=== PATIENT | female | born 1945 | race Caucasian/White ===

== ENCOUNTER 2022-10-28 09:01 | Observation (INO) ==
[2022-10-28] MEDS ORDERED: IOPAMIDOL 100 ML BOTTLE IV ONE (09:02)
--- NOTE | 2022-10-28 09:09 | Emergency Department Note ---
HPI General Chief complaint: Stroke Symptoms Stated complaint: Stroke-like symptoms Time Seen by Provider: 10/28/22 09:08 Source: patient Mode of arrival: ambulatory Limitations: no limitations History of Present Illness HPI Narrative: Narrative: Patient is a 77 yo F with a history of CVA, hypertension, and hyperlipidemia who presents to the emergency department due to dizziness, imbalance, headache, and concern for stroke. She states that her symptoms started at approximately 800 am one hour ago. She suddenly became dizzy then was having trouble balancing her self. She states that both of these have continued. She also endorses moderate headache as well. She is concerned because her previous stroke was similar to this. She denies any other concerns at this time. Related Data Home Medications Medication Instructions Recorded Confirmed ascorbic acid (vitamin C) 1,000 mg 1,000 mg PO QDAY 06/01/15 10/28/22 tablet (Vitamin C) multivit with 1 ea PO QDAY 06/01/15 10/28/22 [id number] 8 mg iron-400 mcg-300 mcg tablet (Centrum Silver Women) omega-3 fatty acids-fish oil 300 1 ea PO QDAY 06/01/15 10/28/22 mg-500 mg capsule (Fish Oil) omeprazole 20 mg capsule,delayed 20 mg PO ACB 06/01/15 10/28/22 release potassium chloride 20 mEq 40 meq PO QAMCC 06/01/15 10/28/22 tablet,extended release(part/cryst) (Klor-Con M) simvastatin 20 mg tablet 20 mg PO DAILY 06/01/15 10/28/22 synthetic conj estrogens B 0.3 mg 0.3 mg PO QDAY 06/01/15 10/28/22 tablet (Enjuvia) venlafaxine 75 mg tablet 75 mg PO QDAY 06/01/15 10/28/22 aspirin 81 mg tablet,delayed 81 mg PO DAILY 03/04/19 10/28/22 release clopidogrel 75 mg tablet 75 mg PO DAILY 03/04/19 10/28/22 meloxicam 15 mg tablet 15 mg PO DAILY 03/04/19 10/28/22 hydrochlorothiazide 12.5 mg capsule 12.5 mg PO QDAY 10/28/22 10/28/22 oxybutynin chloride 5 mg tablet 5 mg PO QDAY 10/28/22 10/28/22 Previous Rx's Medication Instructions Recorded losartan 100 1 tab PO QDAY #90 tabs 07/20/ mg-hydrochlorothiazide 12.5 mg tablet loperamide 2 mg tablet (Imodium 2 mg PO Q6H PRN loose stool #20 10/29/22 A-D) tabs meclizine 25 mg tablet 25 mg PO TIDP PRN Vertigo #20 tabs 10/29/22 Allergies Allergy/AdvReac Type Severity Reaction Status Date / Time No Known Drug Allergies Allergy Verified 07/09/20 18:19 Review of Systems ROS ROS Narrative: Narrative: Constitutional: Denies fever or weakness Eyes: Denies eye pain or vision change ENT ED: Denies throat pain or rhinorrhea Cardiovascular: Denies chest pain, dyspnea on exertion, orthopnea or edema Respiratory: Denies shortness of breath or cough Gastrointestinal: Denies abdominal pain, nausea, vomiting, diarrhea, constipation, hematochezia or melena Musculoskeletal: Denies back pain or myalgia Integumentary: Denies rash or lesions Neurological: Reports headache, abnormal gait and dizziness; Denies weakness, numbness or confusion Endocrine: Denies fatigue or polyuria Hematological/Lymphatic: Denies easy bleeding or easy bruising PFSH Narrative Patient History Narrative: Narrative: Medical/Surgical/Family History All Active Problems (Updated 10/30/22 @ 11:13 by Abundio Magana MD) Headache (Acute) Nystagmus (Acute) Dizziness (Acute) Imbalance (Acute) BPPV (benign paroxysmal positional vertigo) (Acute) TIA (transient ischemic attack) (Acute) CVA (cerebral vascular accident) (Acute) Syncope and collapse (Acute) Contusion of forehead (Acute) Contusion of knee, right (Acute) Headache (Acute) Paroxysmal atrial flutter (Acute) History of CVA (cerebrovascular accident) (Chronic) Chronic anticoagulation (Chronic) Hypertension (Chronic) Hyperlipidemia (Chronic) GERD (gastroesophageal reflux disease) (Chronic) Depression, major, recurrent (Chronic) Medical History (Updated 10/30/22 @ 11:13 by Abundio Magana MD) Chronic anticoagulation CVA (cerebral vascular accident) Depression, major, recurrent Epistaxis, recurrent GERD (gastroesophageal reflux disease) History of CVA (cerebrovascular accident) slight or mild decrease in sensation R edel... Hyperlipidemia Hypertension Exam Narrative Narrative: Narrative: General Limitations: no limitations General appearance: Present alert and in no apparent distress; Absent anxious, appears intoxicated or sleepy Head Head: Present atraumatic and normocephalic Eye Eye: Present EOMI, nystagmus, visual brewster intact and other (Anisocoria with right pupil larger than left); Absent scleral icterus ENT ENT: Present mucous membranes moist; Absent nasal congestion Neck Neck: Present full ROM; Absent tenderness Chest Chest: Present normal inspection and symmetric chest wall rise; Absent tenderness Respiratory Respiratory: Present normal lung sounds bilaterally; Absent respiratory distress or accessory muscle use Cardiovascular Cardiovascular: Present regular rate, normal rhythm and normal heart sounds Adbominal Abdominal: Present soft; Absent distention Extremities Extremities: Present normal inspection and full ROM; Absent pedal edema or pretibial edema Back Back: Present normal inspection and full ROM Neurological Neurological: Present alert, oriented X3, CN II-XII intact, motor sensory deficit (Mild upper and lower extremity drift on left) and reflexes normal Psychiatric Psychiatric: Present normal affect and normal mood Skin Skin: Present warm (WNL), dry and normal color Course Vital Signs Vital signs: Vital Signs Pulse Rate 108 H 10/28/22 09:01 Respiratory Rate 14 10/28/22 09:01 Blood Pressure 158/90 10/28/22 09:01 Pulse Oximetry (%) 99 10/28/22 09:01 Oxygen Delivery Method Room Air 10/28/22 09:01 Temperature 97.5 F 10/29/22 11:09 Pulse Rate 89 10/29/22 11:09 Respiratory Rate 16 10/29/22 11:09 Blood Pressure 143/93 10/29/22 11:09 Pulse Oximetry (%) 98 10/29/22 11:09 Oxygen Delivery Method Room Air 10/29/22 11:09 Oxygen Flow Rate (L/min) 0 10/29/22 06:01 [facility] Narrative Medical decision making narrative: Narrative: Patient is a 77 yo F who presents to the emergency department due to concern for stroke. Differential includes BPPV, stroke, and complex migraine. A stroke alert was called quickly after my initial evaluation. I spoke to the teleneurologic doctor who agreed that patient did not meet criteria to give TNkase. He did recommend continued stroke work up with admission and MRI. CT without contrast and CT angio head/neck are reassuring. Labs are reassuring. Patient has been given toradol, reglan, and benadryl with IV fluid for her headache with improvement in headache, but she continues to be dizzy and is found to have continued nystagmus and anisocoria. I have spoken to Dr. Paulson who has agreed to see and evaluate patient for admission. Lab Data 10/28/22 09:08 Labs: Lab Results 10/28/22 10/28/22 10/28/22 Range/Units 09:08 09:08 09:11 WBC 6.9 (4.5-11.0) K/mcL RBC 5.37 (3.59-5.38) M/mcL Hgb 15.5 (11.2-15.7) g/dL Hct 47.8 H (34.1-44.9) % POC Hct 47.0 (36-48) MCV 89.0 (80.0-100.0) fL MCH 28.9 (26.0-34.0) pg MCHC 32.4 (31.0-36.0) g/dL RDW 12.6 (11.5-14.5) % Plt Count 268 (140-440) K/mcL MPV 10.2 (8.8-12.5) fL Immature Gran % (Auto) 0.3 (0.0-0.5) % Neut % (Auto) 64.3 (38.0-78.0) % Lymph % (Auto) 25.5 (15.5-49.0) % Broome % (Auto) 8.0 (1.0-12.0) % Eos % (Auto) 1.3 (0.0-7.0) % Baso % (Auto) 0.6 (0.0-2.0) % Lymph # (Auto) 1.75 (1.50-4.80) K/mcL Broome # (Auto) 0.55 (0.10-0.90) K/mcL Eos # (Auto) 0.09 (0.00-0.70) K/mcL Baso # (Auto) 0.04 (0.00-0.30) K/mcL Immature Gran # 0.02 (0.00-0.05) K/mcl Absolute Neutrophils 4.42 (1.80-8.00) K/mcL POC PT (11.9-14.5) POC INR (0.8-1.2) APTT 24.0 (20.0-37.0) sec POC Sodium 141 (133-145) POC Potassium 3.8 (3.3-5.1) POC Chloride 103 (96-108) POC Total CO2 28.0 (22-30) POC BUN 29 H (6-20) POC Creatinine 1.1 (0.6-1.2) POC Glucose 140 H (70-105) POC WB Ioniz Calcium 1.16 (1.16-1.32) Total Bilirubin (0.1-1.0) mg/dL Direct Bilirubin (0-0.3) mg/dL AST (<32) U/L ALT (<40) U/L Alkaline Phosphatase (39-117) U/L Total Protein (5.9-8.4) gm/dL Albumin (3.2-5.2) gm/dL Globulin (2.2-3.7) gm/dL Urine Color Urine Appearance (Clear) Urine pH (5.0-9.0) Ur Specific Festus (1.000-1.035) Urine Protein (Negative) mg/dL Urine Glucose (UA) (Negative) mg/dL Urine Ketones (Negative) mg/dL Urine Occult Blood (Negative) bernarda/mcL Urine Nitrate (Negative) Urine Bilirubin (Negative) mg/dL Urine Urobilinogen mg/dL Ur Leukocyte Esterase (Negative) /uL Ur Culture Indicated? POC Troponin I (0.00-0.08) 10/28/22 10/28/22 10/28/22 Range/Units 09:12 09:28 09:28 WBC (4.5-11.0) K/mcL RBC (3.59-5.38) M/mcL Hgb (11.2-15.7) g/dL Hct (34.1-44.9) % POC Hct (36-48) MCV (80.0-100.0) fL MCH (26.0-34.0) pg MCHC (31.0-36.0) g/dL RDW (11.5-14.5) % Plt Count (140-440) K/mcL MPV (8.8-12.5) fL Immature Gran % (Auto) (0.0-0.5) % Neut % (Auto) (38.0-78.0) % Lymph % (Auto) (15.5-49.0) % Broome % (Auto) (1.0-12.0) % Eos % (Auto) (0.0-7.0) % Baso % (Auto) (0.0-2.0) % Lymph # (Auto) (1.50-4.80) K/mcL Broome # (Auto) (0.10-0.90) K/mcL Eos # (Auto) (0.00-0.70) K/mcL Baso # (Auto) (0.00-0.30) K/mcL Immature Gran # (0.00-0.05) K/mcl Absolute Neutrophils (1.80-8.00) K/mcL POC PT 13.4 (11.9-14.5) POC INR 1.1 (0.8-1.2) APTT (20.0-37.0) sec POC Sodium (133-145) POC Potassium (3.3-5.1) POC Chloride (96-108) POC Total CO2 (22-30) POC BUN (6-20) POC Creatinine (0.6-1.2) POC Glucose (70-105) POC WB Ioniz Calcium (1.16-1.32) Total Bilirubin 0.4 (0.1-1.0) mg/dL Direct Bilirubin < 0.2 (0-0.3) mg/dL AST 19 (<32) U/L ALT 16 (<40) U/L Alkaline Phosphatase 76 (39-117) U/L Total Protein 7.4 (5.9-8.4) gm/dL Albumin 4.4 (3.2-5.2) gm/dL Globulin 3.0 (2.2-3.7) gm/dL Urine Color Urine Appearance (Clear) Urine pH (5.0-9.0) Ur Specific Festus (1.000-1.035) Urine Protein (Negative) mg/dL Urine Glucose (UA) (Negative) mg/dL Urine Ketones (Negative) mg/dL Urine Occult Blood (Negative) bernarda/mcL Urine Nitrate (Negative) Urine Bilirubin (Negative) mg/dL Urine Urobilinogen mg/dL Ur Leukocyte Esterase (Negative) /uL Ur Culture Indicated? POC Troponin I 0.02 (0.00-0.08) 01/31/23 Range/Units 11:33 WBC (4.5-11.0) K/mcL RBC (3.59-5.38) M/mcL Hgb (11.2-15.7) g/dL Hct (34.1-44.9) % POC Hct (36-48) MCV (80.0-100.0) fL MCH (26.0-34.0) pg MCHC (31.0-36.0) g/dL RDW (11.5-14.5) % Plt Count (140-440) K/mcL MPV (8.8-12.5) fL Immature Gran % (Auto) (0.0-0.5) % Neut % (Auto) (38.0-78.0) % Lymph % (Auto) (15.5-49.0) % Broome % (Auto) (1.0-12.0) % Eos % (Auto) (0.0-7.0) % Baso % (Auto) (0.0-2.0) % Lymph # (Auto) (1.50-4.80) K/mcL [place]ome # (Auto) (0.10-0.90) K/mcL Eos # (Auto) (0.00-0.70) K/mcL Baso # (Auto) (0.00-0.30) K/mcL Immature Gran # (0.00-0.05) K/mcl Absolute Neutrophils (1.80-8.00) K/mcL POC PT (11.9-14.5) POC INR (0.8-1.2) APTT (20.0-37.0) sec POC Sodium (133-145) POC Potassium (3.3-5.1) POC Chloride (96-108) POC Total CO2 (22-30) POC BUN (6-20) POC Creatinine (0.6-1.2) POC Glucose (70-105) POC WB Ioniz Calcium (1.16-1.32) Total Bilirubin (0.1-1.0) mg/dL Direct Bilirubin (0-0.3) mg/dL AST (<32) U/L ALT (<40) U/L Alkaline Phosphatase (39-117) U/L Total Protein (5.9-8.4) gm/dL Albumin (3.2-5.2) gm/dL Globulin (2.2-3.7) gm/dL Urine Color Lt. yellow Urine Appearance Clear (Clear) Urine pH 6.5 (5.0-9.0) Ur Specific Festus <= 1.005 (1.000-1.035) Urine Protein Negative (Negative) mg/dL Urine Glucose (UA) Negative (Negative) mg/dL Urine Ketones Negative (Negative) mg/dL Urine Occult Blood Negative (Negative) bernarda/mcL Urine Nitrate Negative (Negative) Urine Bilirubin Negative (Negative) mg/dL Urine Urobilinogen Normal mg/dL Ur Leukocyte Esterase Negative (Negative) /uL Ur Culture Indicated? No POC Troponin I (0.00-0.08) EKG Data EKG #1: EKG attestation: Yes I reviewed and interpreted this EKG. EKG results narrative: Atrial fibrillation with rate of 107, normal axis, QRS of 94, QTc of 444, T wave inversions in lead I and aVL, T wave flattening in leads II, V5, and V6, and absence of ST elevation or depression. Discharge Plan Patient/Caregiver Discharge Instructions Pt seen by SPECIAL SERVICES COORDINATOR/PA only: No Clinical Impression: Headache, Nystagmus, Dizziness, Imbalance Activity: increase activity as tolerated Patient Disposition: Xfer As Inpt ([facility]) Condition: Fair Discharge Date/Time: 10/28/22 15:00
[2022-10-28] MEDS ORDERED: TENECTEPLASE 50 MG/10 ML VIAL IV ONE (09:17)
--- NOTE | 2022-10-28 09:27 | Cat Scan Report ---
INDICATION: Neuro Deficit/acute stroke COMPARISON: Previous brain CT scan dated 09/01/2019. Previous MRI scan dated 01/10/2019. Previous CTA dated 01/10/2019 TECHNIQUE: Axial noncontrast-enhanced images through the brain. Sagittally and coronally reformatted images. FINDINGS: Cerebral hemispheres:Negative. No intra-axial abnormality. No intra-axial hematoma. No localized mass effect.Brain volume is within normal limits for age. Periventricular white matter is negative without significant attenuation abnormality. Brainstem and cerebellum:No intra-axial abnormality Extra-axial:No acute hemorrhage. No subdural or epidural hematoma. No subarachnoid hemorrhage. Basilar cisterns are normal Calvarial:No calvarial fracture. No lytic lesion Temporal bones are negative. No destructive lesions Soft tissue, orbits, sinuses:Orbits and visualized facial soft tissues are negative. There is fluid within left mastoid air cells consistent with sinusitis. This is unchanged. IMPRESSION: 1. No acute intracranial abnormality 2. Left mastoid sinusitis 3. No interval change since 09/01/2019 The exam was performed using radiation dose optimization techniques including, but not limited to, automated exposure control, adjustment of the mA and/or kV according to patient size and use of iterative reconstruction technique. Interpreted and Authenticated by: Shashank Celestin 10/28/22
[2022-10-28 09:30] LABS: POC INR 1.1 (0.8-1.2); POC Pro Time 13.4 (11.9-14.5)
[2022-10-28 09:34] LABS: POC Calcium, Ionized 1.16 (1.16-1.32); POC Creatinine 1.1 (0.6-1.2); POC Potassium 3.8 (3.3-5.1)
[2022-10-28] MEDS ORDERED: 0.9 % SODIUM CHLORIDE 500 ML IV ONE (09:40)
[2022-10-28] MEDS ORDERED: diphenhydrAMINE 50 MG/ML VIAL IV ONE (10:17)
[2022-10-28] MEDS ORDERED: METOCLOPRAMIDE 10 MG/2 ML VIAL IV ONE (10:17)
[2022-10-28] MEDS ORDERED: KETOROLAC 30 MG/ML VIAL IV ONE (10:17)
[2022-10-28 10:23] LABS: Basophils # (Auto) 0.04 K/mcL (0.00-0.30); Basophils % (Auto) 0.6 % (0.0-2.0); Eosinophils # (Auto) 0.09 K/mcL (0.00-0.70); Eosinophils % (Auto) 1.3 % (0.0-7.0); Hematocrit 47.8 % (34.1-44.9); Hemoglobin 15.5 g/dL (11.2-15.7); Lymphocytes # (Auto) 1.75 K/mcL (1.50-4.80); Lymphocytes % (Auto) 25.5 % (15.5-49.0); Mean Corpuscular HGB Conc 32.4 g/dL (31.0-36.0); Mean Platelet Volume 10.2 fL (8.8-12.5); Monocytes # (Auto) 0.55 K/mcL (0.10-0.90); Neutrophils % (Auto) 64.3 % (38.0-78.0); Platelet Count 268 K/mcL (140-440); RBC 5.37 M/mcL (3.59-5.38); Red Cell Distribution Width 12.6 % (11.5-14.5); WBC 6.9 K/mcL (4.5-11.0)
--- NOTE | 2022-10-28 10:34 | Cat Scan Report ---
INDICATION: Concern for stroke COMPARISON: Noncontrast enhanced brain CT scan dated 10/28/2022 TECHNIQUE: Axial images were obtained through the upper chest, neck, and head during arterial phase. MIP and CPR reformatted images. 80ml Isovue 370 injected intravenously. FINDINGS: AORTIC ARCH: No significant calcified atherosclerotic plaque. Origins of the left subclavian artery, left vertebral artery, left common carotid artery, innominate artery, right common carotid artery, right subclavian artery, right vertebral artery are negative. No origin stenosis. CAROTID ARTERIES:Right: Right common carotid artery is negative. No stenosis or occlusion. No significant calcified or noncalcified plaque at the origin of the right internal carotid artery. No significant stenosis or evidence for ulceration. Right internal carotid artery is otherwise negative. No stenosis or occlusion. No fibromuscular dysplasia or dissection. Left: Left common carotid artery is negative. No stenosis or occlusion Minimal calcified plaque at the origin of left internal carotid artery. No significant stenosis. No evidence for ulceration. Left internal carotid artery is otherwise negative. There is no stenosis or occlusion. No dissection or evidence for fibromuscular dysplasia VERTEBRAL ARTERIES:Vertebral arteries are patent without stenosis or occlusion. Right vertebral artery is larger than the left. Left vertebral artery is patent throughout its length. [place]:[Cavernous and supraclinoid internal carotid arteries are negative. No significant stenosis or occlusion. M1 segments of the middle cerebral arteries and A1 segments of the anterior cerebral arteries are negative. Intracranial vertebral arteries and basilar artery are negative. Posterior cerebral arteries and superior cerebellar arteries are negative] INTRACRANIAL CIRCULATION:No intracranial branch occlusion. No arteriovenous malformation or aneurysm No dural sinus occlusion UPPER CHEST:No pulmonary parenchymal mass or focal infiltrate. Superior mediastinum is negative NECK:No solid or cystic soft tissue mass. No pathologic lymphadenopathy. BRAIN:No acute intracranial hemorrhage. No focal attenuation abnormalities or pathologic contrast enhancement. There is fluid within a prominent left mastoid air cell consistent with inflammatory disease. IMPRESSION: Negative CTA of the upper chest, neck, brain The exam was performed using radiation dose optimization techniques including, but not limited to, automated exposure control, adjustment of the mA and/or kV according to patient size and use of iterative reconstruction technique. Interpreted and Authenticated by: Shashank Celestin 10/28/22
[2022-10-28 11:13] LABS: ALT/SGPT 16 U/L (<40); AST/SGOT 19 U/L (<32); Albumin 4.4 gm/dL (3.2-5.2); Alkaline Phosphatase 76 U/L (39-117); Bilirubin,Direct < 0.2 mg/dL (0-0.3); Bilirubin,Total 0.4 mg/dL (0.1-1.0)
[2022-10-28 12:33] LABS: Appearance,Urine CLEAR (Clear); Bilirubin,Urine NEGATIVE (Negative); Color,Urine LT. YELLOW; Culture Indicated,Urine No; Glucose,Urine (UA) NEGATIVE (Negative); Ketones,Urine NEGATIVE (Negative); Leukocyte Esterase,Urine NEGATIVE /uL (Negative); Nitrate,Urine NEGATIVE (Negative); PH,Urine 6.5 (5.0-9.0); Protein,Urine NEGATIVE (Negative); Specific Gravity,Urine <= 1.005 (1.000-1.035); Urine Blood NEGATIVE ery/mcL (Negative); Urobilinogen,Urine Normal
[2022-10-28] MEDS ORDERED: ASPIRIN 325 MG ENTERIC COATED TABLET PO ONE (13:38)
[2022-10-28] MEDS ORDERED: ASPIRIN 81 MG TAB.CHEW CHEWED ONE (14:17)
--- NOTE | 2022-10-28 14:22 | Internal Med History&Physical ---
HPI History of Present Illness Patient information: Note initiated : 10/28/22 at 2:17 pm Service Date, if different from initiated Date: [] Patient: Shelly Adorno a 77 y/o F admitted on for Stroke-like symptoms. Chief Complaint: [nausea vomiting headache dizziness] Chief complaint: nausea vomiting headache dizziness History of present illness: Ms. Adorno is a 77 year old F history of stroke, essential hypertensions, mixed dyslipidemia, presenting with 1 day history of acute onset nausea, vomiting, headache, dizziness. She had a history of stroke 5 years ago. Today at 8 AM in the morning, patient had acute onset headaches, dizziness in terms of room spinning sensations, nausea, vomiting. She also have unsteadiness to her feet she could barely stand up or walk. She also has blurry vision. She denies any numbness or weakness of any of her extremities. Vital signs at ED presentation significant for mild tachycardia heart rate up to the 110s beats per minute. Labs largely unremarkable. NIH stroke scale at ED presentation equals to 2. CT of the head without contrast no acute intracranial pathologies. CTA head and the neck no hemodynamically significant stenosis. Admission request was called for stroke versus TIA versus BPPV. Constitutional Constitutional: Absent chills, excessive sweating, fatigue, fever(s) or weakness EENT Eyes: Present blurry vision and change in vision; Absent loss of vision or other visual disturbances Ears: Absent decreased hearing or tinnitus Nose, mouth and throat: Absent abnormal hearing, dry mouth, headache(s), nasal congestion or sore throat Cardiovascular Cardiovascular: Absent chest pain, chest pain at rest, edema, irregular heart rhythm or palpatations Respiratory Respiratory: Absent cough, dyspnea or wheezing Gastrointestinal Gastrointestinal: Present nausea and vomiting; Absent abdominal pain, constipation or diarrhea Musculoskeletal Musculoskeletal: Absent back pain, deformity, limited range of motion, muscle cramps, muscle weakness or numbness Integumentary Integumentary: Absent lesions, rash or wounds Neurological Neurological: Present disequilibrium, headache(s) and vertigo; Absent focal weakness or numbness Psychiatric Psychiatric: Absent anxiety, depression or hallucinations PFSH PFSH All Active Problems (Updated 10/28/22 @ 14:27 by Alber Paulson MD) BPPV (benign paroxysmal positional vertigo) (Acute) TIA (transient ischemic attack) (Acute) CVA (cerebral vascular accident) (Acute) Syncope and collapse (Acute) Contusion of forehead (Acute) Contusion of knee, right (Acute) Headache (Acute) Paroxysmal atrial flutter (Acute) History of CVA (cerebrovascular accident) (Chronic) Chronic anticoagulation (Chronic) Hypertension (Chronic) Hyperlipidemia (Chronic) GERD (gastroesophageal reflux disease) (Chronic) Depression, major, recurrent (Chronic) Medical History (Updated 10/28/22 @ 14:27 by Alber Paulson MD) Chronic anticoagulation CVA (cerebral vascular accident) Depression, major, recurrent Epistaxis, recurrent GERD (gastroesophageal reflux disease) History of CVA (cerebrovascular accident) slight or mild decrease in sensation R edel... Hyperlipidemia Hypertension MEDS/ALLERGIES Home Medications and Allergies Home Medications Medication Instructions Recorded Confirmed Type ascorbic acid (vitamin C) 1,000 mg 1,000 mg PO QDAY 06/01/15 10/28/22 History tablet (Vitamin C) multivit with 1 ea PO QDAY 06/01/15 10/28/22 History [id number] 8 mg iron-400 mcg-300 mcg tablet (Centrum Silver Women) omega-3 fatty acids-fish oil 300 1 ea PO QDAY 06/01/15 10/28/22 History mg-500 mg capsule (Fish Oil) omeprazole 20 mg capsule,delayed 20 mg PO ACB 06/01/15 10/28/22 History release potassium chloride 20 mEq 40 meq PO QAMCC 06/01/15 10/28/22 History tablet,extended release(part/cryst) (Klor-Con M) simvastatin 20 mg tablet 20 mg PO DAILY 06/01/15 10/28/22 History synthetic conj estrogens B 0.3 mg 0.3 mg PO QDAY 06/01/15 07/09/20 History tablet (Enjuvia) venlafaxine 75 mg tablet 75 mg PO QDAY 06/01/15 10/28/22 History losartan 100 1 tab PO QDAY #90 tabs 07/20/15 10/28/22 Rx mg-hydrochlorothiazide 12.5 mg tablet aspirin 81 mg tablet,delayed 81 mg PO DAILY 03/04/19 10/28/22 History release clopidogrel 75 mg tablet 75 mg PO DAILY 03/04/19 10/28/22 History meloxicam 15 mg tablet 15 mg PO DAILY 03/04/19 10/28/22 History hydrochlorothiazide 12.5 mg capsule 12.5 mg PO QDAY 10/28/22 10/28/22 History oxybutynin chloride 5 mg tablet 5 mg PO QDAY 10/28/22 10/28/22 History Allergies Allergy/AdvReac Type Severity Reaction Status Date / Time No Known Drug Allergies Allergy Verified 07/09/20 18:19 EXAM Constitutional Vitals: Pulse Resp BP Pulse Ox O2 Del Method 110 H 16 137/80 94 Nasal Cannula 10/28/22 13:49 10/28/22 13:49 10/28/22 13:16 10/28/22 13:49 10/28/22 13:16 General appearance: cooperative and no acute distress Head Head exam: Present atraumatic and normocephalic Eye Eye exam: Present EOMI; Absent PERRL Additional comments: Pupil size unequal, right >left Questionable very mild nystagmus ENT ENT exam: Present mucous membranes moist, normal exam and normal external ear exam Neck Neck exam: Present normal inspection; Absent lymphadenopathy, tenderness or thyromegaly Respiratory Respiratory exam: Absent accessory muscle use, respiratory distress or wheezes Cardiovascular Cardiovascular exam: Present normal rate and rhythm; Absent JVD GI/Abdominal GI/Abdominal exam: Present normal bowel sounds and soft; Absent organomegaly or tenderness Extremities Exam Extremities exam: Present full ROM, normal capillary refill and normal inspection; Absent tenderness Neurological Exam Neurological exam: Present alert, CN II-XII intact and oriented X3; Absent motor sensory deficit Psychiatric Psychiatric exam: Present normal affect and normal mood; Absent anxious or depressed Skin Skin exam: Present dry and intact DATA Data Completed and Pending Labs: Labs from last 24 hours 10/28/22 10/28/22 10/28/22 11:33 09:28 09:28 WBC RBC Hgb Hct POC Hct MCV MCH MCHC RDW Plt Count MPV Immature Gran % (Auto) Neut % (Auto) Lymph % (Auto) [place] % (Auto) Eos % (Auto) Baso % (Auto) Lymph # (Auto) [place] # (Auto) Eos # (Auto) Baso # (Auto) Immature Gran # Absolute Neutrophils POC PT 13.4 POC INR 1.1 APTT POC Sodium POC Potassium POC Chloride POC Total CO2 POC BUN POC Creatinine POC Glucose POC WB Ioniz Calcium Total Bilirubin 0.4 Direct Bilirubin < 0.2 AST 19 ALT 16 Alkaline Phosphatase 76 Total Protein 7.4 Albumin 4.4 Globulin 3.0 Urine Color Lt. yellow Urine Appearance Clear Urine pH 6.5 Ur Specific [place] <= 1.005 Urine Protein Negative Urine Glucose (UA) Negative Urine Ketones Negative Urine Occult Blood Negative Urine Nitrate Negative Urine Bilirubin Negative Urine Urobilinogen Normal Ur Leukocyte Esterase Negative Ur Culture Indicated? No POC Troponin I 10/28/22 10/28/22 10/28/22 09:12 09:11 09:08 WBC RBC Hgb Hct POC Hct 47.0 MCV MCH MCHC RDW Plt Count MPV Immature Gran % (Auto) Neut % (Auto) Lymph % (Auto) [place] % (Auto) Eos % (Auto) Baso % (Auto) Lymph # (Auto) [place] # (Auto) Eos # (Auto) Baso # (Auto) Immature Gran # Absolute Neutrophils POC PT POC INR APTT 24.0 POC Sodium 141 POC Potassium 3.8 POC Chloride 103 POC Total CO2 28.0 POC BUN 29 H POC Creatinine 1.1 POC Glucose 140 H POC WB Ioniz Calcium 1.16 Total Bilirubin Direct Bilirubin AST ALT Alkaline Phosphatase Total Protein Albumin Globulin Urine Color Urine Appearance Urine pH Ur Specific [place] Urine Protein Urine Glucose (UA) Urine Ketones Urine Occult Blood Urine Nitrate Urine Bilirubin Urine Urobilinogen Ur Leukocyte Esterase Ur Culture Indicated? POC Troponin I 0.02 10/28/22 09:08 WBC 6.9 RBC 5.37 Hgb 15.5 Hct 47.8 H POC Hct MCV 89.0 MCH 28.9 MCHC 32.4 RDW 12.6 Plt Count 268 MPV 10.2 Immature Gran % (Auto) 0.3 Neut % (Auto) 64.3 Lymph % (Auto) 25.5 [place] % (Auto) 8.0 Eos % (Auto) 1.3 Baso % (Auto) 0.6 Lymph # (Auto) 1.75 [place] # (Auto) 0.55 Eos # (Auto) 0.09 Baso # (Auto) 0.04 Immature Gran # 0.02 Absolute Neutrophils 4.42 POC PT POC INR APTT POC Sodium POC Potassium POC Chloride POC Total CO2 POC BUN POC Creatinine POC Glucose POC WB Ioniz Calcium Total Bilirubin Direct Bilirubin AST ALT Alkaline Phosphatase Total Protein Albumin Globulin Urine Color Urine Appearance Urine pH Ur Specific [place] Urine Protein Urine Glucose (UA) Urine Ketones Urine Occult Blood Urine Nitrate Urine Bilirubin Urine Urobilinogen Ur Leukocyte Esterase Ur Culture Indicated? POC Troponin I A/P Assessment and plan (1) TIA (transient ischemic attack): Status: Acute (2) CVA (cerebral vascular accident): Status: Acute (3) BPPV (benign paroxysmal positional vertigo): Status: Acute (4) Hypertension: Status: Chronic Qualifiers: Hypertension type: essential hypertension Qualified Code(s): I10 - Essential (primary) hypertension (5) Hyperlipidemia: Status: Chronic Narrative A/P Narrative: Assessment and Plans: 1. Nausea, vomiting, headache, vertigo, blurry vision, unsteadiness: DDx: Stroke vs TIA vs BPPV Observation PCU telemetry Neuro Check q2hr NIH stroke scale q shift Bedside swallowing evaluation before feeding patient Aspirin Plavix Lipitor HgA1c screening Lipid panel Meclizine MRI brain stroke protocol 2D echocardiogram Physical therapy Occupational therapy 2. Essential hypertension: Currently normotensive Resume home regimen of oral antihypertensives 3. Dyslipidemia: Lipid panel Lipitor Fish oil omega 3 GI ppx: Prilosec DVT ppx: Lovenox Code status: Full Prognosis: guarded Disposition: observation PCU; PT OT Time Spent With Patient Time: Total time spent is greater than 50% in coordination of care (as documented) at patient's floor/unit and/or counseling patient: Initial: Total time with patient: 55 - 74 minutes QUALITY Stroke Symptom Onset Unknown: No
[2022-10-28] MEDS ORDERED: ONDANSETRON 4 MG/2 ML VIAL IV PRN (14:42)
[2022-10-28] MEDS ORDERED: LACTULOSE 20 GM/30 ML ORAL.SOL PO PRN (14:42)
[2022-10-28] MEDS ORDERED: IPRATROPIUM/ALBUTEROL 3 ML AMPUL.NEB NEB PRN (14:42)
[2022-10-28] MEDS ORDERED: MECLIZINE 25 MG TABLET PO PRN (14:42)
[2022-10-28] MEDS ORDERED: IBUPROFEN 600 MG TABLET PO PRN (14:42)
[2022-10-28] MEDS ORDERED: SENNOSIDES 1 TABLET PO PRN (14:42)
[2022-10-28] MEDS ORDERED: ACETAMINOPHEN 325 MG TABLET PO PRN (14:42)
[2022-10-28] MEDS ORDERED: LORazepam 2 MG/ML VIAL IV SCH (15:06)
--- NOTE | 2022-10-28 16:08 | Magnetic Resonance Report ---
INDICATION: stroke vs tia vs bppv TECHNIQUE: Limited MRI of the brain utilizing acute stroke protocol COMPARISON: Brain CT scan dated 10/28/2022. CTA of the neck and head dated 10/28/2022 FINDINGS: Cerebral hemispheres are negative. No restricted diffusion. No acute infarction. There is moderate white matter abnormality consistent with small vessel ischemic change in this 77-year-old patient Brain volume is within normal limits for age. No extra-axial, intracranial abnormalities. IMPRESSION: 1. Moderate white matter abnormality consistent with small vessel ischemic change 2. No acute infarction Interpreted and Authenticated by: Shashank Celestin 10/28/22
[2022-10-28] MEDS: 0.9 % SODIUM CHLORIDE 10 ML SYRINGE IV SCH (20:17)
[2022-10-28] MEDS: DOCUSATE SODIUM 100 MG CAPSULE PO SCH (20:17)
[2022-10-28] MEDS ORDERED: ATORVASTATIN 40 MG TABLET PO SCH (21:00)
[2022-10-29] MEDS: 0.9 % SODIUM CHLORIDE 10 ML SYRINGE IV SCH (05:49)
[2022-10-29] MEDS ORDERED: OMEPRAZOLE 20 MG CAPSULE PO SCH (07:30)
[2022-10-29] MEDS ORDERED: POTASSIUM CHLORIDE 20 MEQ TABLET PO SCH (08:00)
[2022-10-29] MEDS: DOCUSATE SODIUM 100 MG CAPSULE PO SCH (08:09)
[2022-10-29 08:29] LABS: Estimated Average Glucose(eAG) 100 mg/dL; Hemoglobin A1C 5.1 % Hgb (4.0-6.0)
[2022-10-29 08:42] LABS: HDL Cholesterol 46 mg/dL (>40); LDL Cholesterol,Calculated 96 mg/dL (<100); Non-HDL Cholesterol 136 mg/dL (<130); Triglycerides 205 mg/dL (<150)
[2022-10-29] MEDS ORDERED: LOSARTAN 50 MG TABLET PO SCH (09:00)
[2022-10-29] MEDS ORDERED: VENLAFAXINE 75 MG CAP.XL.24H PO SCH (09:00)
[2022-10-29] MEDS ORDERED: FISH OIL 1,000 MG CAPSULE PO SCH (09:00)
[2022-10-29] MEDS ORDERED: MELOXICAM 7.5 MG TABLET PO SCH (09:00)
[2022-10-29] MEDS ORDERED: ASPIRIN 81 MG TAB.CHEW PO SCH (09:00)
[2022-10-29] MEDS ORDERED: MULTIVIT,THER IRON,CA,FA & MIN 1 TABLET PO SCH (09:00)
[2022-10-29] MEDS ORDERED: OXYBUTYNIN CHLORIDE 5 MG TABLET PO SCH (09:00)
[2022-10-29] MEDS ORDERED: CLOPIDOGREL 75 MG TABLET PO SCH (09:00)
[2022-10-29] MEDS ORDERED: HYDROCHLOROTHIAZIDE 12.5 MG CAPSULE PO SCH (09:00)
[2022-10-29] MEDS ORDERED: ASCORBIC ACID 500 MG TABLET PO SCH (09:00)
[2022-10-29] MEDS ORDERED: ENOXAPARIN 40 MG/0.4 ML SYRINGE SQ SCH (09:00)
[2022-10-29] MEDS ORDERED: LOPERAMIDE 2 MG CAPSULE PO ONE (10:27)
--- NOTE | 2022-10-29 10:30 | Discharge Summary ---
Discharge Provider Provider IMPORTANT FOLLOW-UP INFORMATION FOR PCP: Patient information: Note initiated : 10/29/22 at 10:28 am Service Date, if different from initiated Date: [] Patient: Shelly Adorno 77 y/o F admitted on 10/28/22 for Stroke-like symptoms. Chief Complaint: [] Date of admission: 10/28/22 14:40 Discharge date: 10/29/22 Primary care physician: Shanelle Valderrama Attending physician on admission: Alber Paulson Consults: 10/28/22 Consult to Physician [CONS] Stat Comment: Consulting Provider: Alber Paulson Reason For Exam: Physician to Consult 10/28/22 09:08 Consult to Physician [CONS] Stat Comment: Consulting Provider: [facility] Reason For Exam: Physician to Consult Attending physician on discharge: Alber Paulson COURSE Hospital Course Hospital course: Ms. Adorno is a 77 year old F history of stroke, essential hypertensions, mixed dyslipidemia, presenting with 1 day history of acute onset nausea, vomiting, headache, dizziness. She had a history of stroke 5 years ago. Today at 8 AM in the morning, patient had acute onset headaches, dizziness in terms of room spinning sensations, nausea, vomiting. She also have unsteadiness to her feet she could barely stand up or walk. She also has blurry vision. She denies any numbness or weakness of any of her extremities. Vital signs at ED presentation significant for mild tachycardia heart rate up to the 110s beats per minute. Labs largely unremarkable. NIH stroke scale at ED presentation equals to 2. CT of the head without contrast no acute intracranial pathologies. CTA head and the neck no hemodynamically significant stenosis. Admission request was called for stroke versus TIA versus BPPV. 2: MRI of the brain stroke protocol negative for any acute ischemia. Echocardiogram performed results pending. Patient's symptoms mostly resolved by this morning. Which medical stability. Decision made to discharge patient home with follow-up appointment with PCP 2 weeks arrange for the patient's. Rx sent to pharmacy. All questions answered prior to patient being physically discharged. Discharge diagnosis: TIA vs BPPV Time Spent with Patient Time attestation: Total time spent providing and/or coordinating discharge services: Time spent: Less than 30 minutes EXAM Constitutional Vitals: Temp Pulse Resp BP Pulse Ox O2 Del Method O2 Flow Rate 36.7 C 110 H 16 161/81 94 Room Air 0 10/29/22 08:01 10/29/22 08:01 10/29/22 10:06 10/29/22 10:06 10/29/22 10:06 10/29/22 10:06 10/29/22 06:01 General appearance: cooperative and no acute distress Head Head exam: Present atraumatic and normocephalic Eye Eye exam: Present EOMI Additional comments: Right pupil size >left pupil size, reactive to light ENT ENT exam: Present mucous membranes moist, normal exam and normal external ear exam Neck Neck exam: Present normal inspection; Absent lymphadenopathy, tenderness or thyromegaly Respiratory Respiratory exam: Absent accessory muscle use, respiratory distress or wheezes Cardiovascular Cardiovascular exam: Present normal rate and rhythm; Absent JVD GI/Abdominal GI/Abdominal exam: Present normal bowel sounds and soft; Absent organomegaly or tenderness Extremities Exam Extremities exam: Present full ROM, normal capillary refill and normal inspection; Absent tenderness Neurological Exam Neurological exam: Present alert, CN II-XII intact and oriented X3; Absent motor sensory deficit Psychiatric Psychiatric exam: Present normal affect and normal mood; Absent anxious or depre ssed Skin Skin exam: Present dry and intact Discharge Data Data Completed and Pending Labs on day of discharge: Labs from last 24 hours 10/29/22 10/28/22 10/28/22 05:13 11:33 09:28 APTT Hemoglobin A1c 5.1 Estim Average Glucose 100 Total Bilirubin 0.4 Direct Bilirubin < 0.2 AST 19 ALT 16 Alkaline Phosphatase 76 Total Protein 7.4 Albumin 4.4 Globulin 3.0 Triglycerides 205 H Cholesterol 182 LDL Cholesterol, Calc 96 Non-HDL Cholesterol 136 H HDL Cholesterol 46 Urine Color Lt. yellow Urine Appearance Clear Urine pH 6.5 Ur Specific [place] <= 1.005 Urine Protein Negative Urine Glucose (UA) Negative Urine Ketones Negative Urine Occult Blood Negative Urine Nitrate Negative Urine Bilirubin Negative Urine Urobilinogen Normal Ur Leukocyte Esterase Negative Ur Culture Indicated? No 10/28/22 09:08 APTT 24.0 Hemoglobin A1c Estim Average Glucose Total Bilirubin Direct Bilirubin AST ALT Alkaline Phosphatase Total Protein Albumin Globulin Triglycerides Cholesterol LDL Cholesterol, Calc Non-HDL Cholesterol HDL Cholesterol Urine Color Urine Appearance Urine pH Ur Specific [place] Urine Protein Urine Glucose (UA) Urine Ketones Urine Occult Blood Urine Nitrate Urine Bilirubin Urine Urobilinogen Ur Leukocyte Esterase Ur Culture Indicated? Discharge Plan Patient/Caregiver Discharge Instructions Activity: increase activity as tolerated Diet: Regular Diet Instructions: Transient Ischemic Attack (GEN) Prescriptions: New meclizine 25 mg Tablet 25 mg PO TIDP PRN (Reason: Vertigo) Qty: 20 0RF loperamide [Imodium A-D] 2 mg tablet 2 mg PO Q6H PRN (Reason: loose stool) Qty: 20 0RF Continued losartan-hydrochlorothiazide 100-12.5 mg tablet 1 tab PO QDAY Qty: 90 0RF simvastatin 20 MG tablet 20 mg PO DAILY ascorbic acid (vitamin C) [Vitamin C] 1,000 MG tablet 1,000 mg PO QDAY venlafaxine 75 MG tablet 75 mg PO QDAY potassium chloride [Klor-Con M20] 20 MEQ tablet,ER particles/crystals 40 meq PO QAMCC omeprazole 20 MG capsule,delayed release(DR/EC) 20 mg PO ACB Enjuvia 0.3 MG tablet 0.3 mg PO QDAY Fish Oil 1 EACH capsule 1 ea PO QDAY Centrum Silver Women 1 EACH tablet 1 ea PO QDAY meloxicam 15 MG tablet 15 mg PO DAILY clopidogrel 75 MG tablet 75 mg PO DAILY aspirin 81 MG tablet,delayed release (DR/EC) 81 mg PO DAILY hydrochlorothiazide 12.5 mg Capsule 12.5 mg PO QDAY oxybutynin chloride 5 mg Tablet 5 mg PO QDAY Follow Up Plan Follow up with: Shanelle Valderrama MD [Primary Care Provider] - 11/05/22 10:00 am (Please arrive 15 minutes early) Patient Disposition: Home, Self-Care Prognosis: Fair Rehab Potential: Good I certify that the patient requires SNF services: No Overall status at discharge: patient is back to baseline Discharge Orders: Discharge Order (Routine); Ordered 10/29/22 Ordered By: Alber WOODS VTE Deep Vein Thrombosis/Pulmonary Embolism Present on Admission: No
--- NOTE | 2022-10-29 13:48 | EKG ---
[facility] Test Date: 2022-10-28 Pat Name: Shelly Adorno Department: ED Room: Gender: Female Therapist Asst: ABBY : 1945 Requested By: Abundio Magana Order Number: [id number] Reading MD: Wilbur Anne Measurements Intervals Theresa Rate: 107 P: TX: QRS: 15 QRSD: 94 T: 147 QT: 333 QTc: 444 Interpretive Statements Atrial fibrillation Electronically Signed On 10-29-2022 13:48:11 PST by Wilbur Anne /store/[id number]
== END 2022-10-29 11:20 | disposition home or self-care (01) ==
LOC: ICU 09:01 → ED 09:01 → ICU 15:00
PROVIDERS: ADMIT Internal Medicine; ATTEND Internal Medicine